=== PATIENT | female | born 1955 | race Two or more races ===

== ENCOUNTER 2020-03-13 15:40 | Outpatient (CLI) | payer OTHER | END 2020-03-13 16:20 | disposition home or self-care (01) | LOC: OFIC 805 15:40 | PROVIDERS: ATTEND Otolaryngology | DX: J38.2 Nodules of vocal cords (principal); R49.0 Dysphonia; H92.02 Otalgia, left ear ==

== ENCOUNTER 2023-06-15 06:00 | Day surgery (SDC) | payer OTHER ==
[2023-06-07 11:23] LABS: PH,URINE 5.5 (5.0-8.0); URINE APPEARANCE Clear; URINE BILIRRUBIN Negative (NEGATIVE); URINE BLOOD Negative; URINE COLOR Yellow; URINE GLUCOSE Negative (NEGATIVE); URINE LEUKOCYTE Small; URINE NITRATE Negative; URINE PROTEIN Negative (NEGATIVE); URINE UROBILINOGEN 0.2 E.U./dl
[2023-06-07 11:25] LABS: HEMATOCRIT 44.4 % (36.0-45.00); HEMOGLOBIN 15.3 g/dL (12.0-15.00); MEAN CELL VOLUME 86.4 fL (80.00-100.00); MEAN CORPUSCULAR HEMOGLOBIN 29.7 pg (27.00-32.0); MEAN CORPUSCULAR HGB CONC 34.4 g/dl (32.0-36.0); PLATELET COUNT 194 K/uL (150-450); RED BLOOD COUNT 5.13 M/uL (4.00-6.00); RED CELL DISTRIBUTION WIDTH 13.6 % (11.5-14.5)
[2023-06-07 11:27] LABS: URINE BACTERIA 26.4 uL (0.0-1933); URINE EPITHELIAL CELLS 3.3 uL (0.0-38.8); URINE WBC 10.6 uL (0.0-23.2)
[2023-06-07 11:45] LABS: PARTIAL THROMBOPLASTIN TIME 28.3 SECONDS (22.0-34.0); PROTHROMBIN TIME 10.5 SECONDS (9.0-11.5)
[2023-06-07 11:47] LABS: URINE RBC 1.2 uL (0.0-20.8)
[2023-06-07 11:48] LABS: BILIRUBIN TOTAL 1.4 mg/dL (0.3-1.2); CALCIUM 9.2 mg/dL (8.5-10.1); CREATININE SERUM 0.67 mg/dL (0.55-1.02); GFR 87.53; GLOBULINA 3.2 G/DL (2.4-3.5); POTASSIUM 4.45 mEq/L (3.5-5.1); TOTAL PROTEIN 7.2 gm/dL (6.4-8.2)
[~2023-06-15 06:00] MED LIST: FAMOTIDINE 5 MG; LEXAPRO5 MG PO; ROSUVASTATIN 5 MG; [UNRECOGNIZED DRUG - OTHER]; [UNRECOGNIZED DRUG - OTHER]
== END 2023-06-15 11:40 | disposition home or self-care (01) ==
LOC: CIR.AMB 06:00
PROVIDERS: ATTEND Colon & Rectal Surgery
DX: R15.9 Full incontinence of feces (principal); K92.1 Melena; Z20.822 Contact with and (suspected) exposure to COVID-19; E78.5 Hyperlipidemia, unspecified; E03.9 Hypothyroidism, unspecified